=== PATIENT | male | born 1980 ===

== ENCOUNTER 2022-12-24 16:16 | Outpatient (REF) | payer SELFPAY ==
[2022-12-27 11:29] LABS: Lyme Ab w Rflx to Lyme Confirm Negative (Negative)
[2022-12-28 17:34] LABS: B. miyamotoi PCR Negative (Negative); Babesia divergens/MO-1 Negative (Negative); Babesia duncani Negative (Negative); Babesia microti Negative (Negative); Ehrlichia chaffeensis Negative (Negative); Ehrlichia ewingii/canis Negative (Negative); Ehrlichia muris eauclairensis Negative (Negative)
[2022-12-28 18:16] LABS: Anaplasma phagocytophilum Positive (Negative)
== END 2022-12-24 16:17 | disposition home or self-care (01) ==
LOC: LBN 16:16
PROVIDERS: Visit Provider Physician Assistant Medical
DX: R52 Pain, unspecified (principal)
CPT/HCPCS: 87798; 86618